=== PATIENT | male | born 1980 | race Caucasian/White ===

== ENCOUNTER 2016-11-08 19:58 | Inpatient (IN) | payer BC ==
[~2016-11-08] VITALS: Ht 190.5 cm; Wt 116.4 kg
[2016-11-08 20:06] VITALS: BP 180/135; PULSE 93; RESP 18; TEMP 98.2; O2SAT 97
[2016-11-08 20:30] VITALS: BP 163/86; PULSE 90; RESP 18; O2SAT 95
[2016-11-08] MEDS ORDERED: SODIUM CHLOR 0.9% 1000 ML INJ 1,000 ML IV SCH (20:31)
--- NOTE | 2016-11-08 20:45 | PD ---
HPI Chief Complaint: ENT Complaint Time Seen by Provider: 20:30 Travel History International Travel<30 days: No Contact w/Intl Traveler<30days: No Traveled to known affect area: No History of Present Illness HPI 36-year-old male with history of asthma brought in by his mother for evaluation of altered mental status. The patient lives in [place] and drove into town today. He was supposed to drive and yesterday, but states he wasn't feeling well. About a week ago Tuesday he went to an urgent care facility and was diagnosed with thrush for which she has been taking nystatin. The patient also reports taking a significant amount of Tylenol since then because he has been having head, mouth, and neck pain. Patient is also complaining of involuntary movements which have been going on for last several days. He denies alcohol abuse or illicit drug use. He is not sure if he has had fever. [facility] Social History Alcohol Use: Yes Tobacco Use: Yes Substance Use: Yes Allergies-Medications (Allergen,Severity, Reaction): Coded Allergies: No Known Allergies (Unverified , 11/08/16) Reported Meds & Prescriptions Reported Meds & Active Scripts Active Reported Tylenol (Acetaminophen) 325 Mg Tab 650 Mg PO Q6H PRN Paxil (Paroxetine HCl) Unknown Strength Tab Unknown Dose PO DAILY Review of Systems Except as stated in HPI: all other systems reviewed are Neg Physical Exam Narrative GENERAL: Well-developed, well-nourished, flailing arms and legs in bed, keeps eyes closed, follows commands. SKIN: Focused skin assessment warm/dry. No petechiae. HEAD: Atraumatic. Normocephalic. EYES: Pupils equal, round, 3 mm, reactive to light. No scleral icterus. No injection or drainage. ENT: No nasal bleeding or discharge. Mucous membranes pink and moist. White patches on tongue and buccal mucosa which are unable to be removed. NECK: Trachea midline. No JVD. No nuchal rigidity. Cervical LAD. CARDIOVASCULAR: Regular rate and rhythm. RESPIRATORY: No accessory muscle use. Clear to auscultation. Breath sounds equal bilaterally. GASTROINTESTINAL: Abdomen soft, non-tender, nondistended. MUSCULOSKELETAL: No obvious deformities. No clubbing. No cyanosis. No edema. NEUROLOGICAL: Awake and alert. Keeps eyes closed. Appears restless. Moves all extremities with continuous movements. No focal deficits. No obvious cranial nerve deficits. Motor grossly within normal limits. Normal speech. PSYCHIATRIC: Appropriate mood and affect; insight and judgment normal. Data Data Last Documented VS Vital Signs Date Time Temp Pulse Resp B/P Pulse Ox O2 Delivery O2 Flow Rate FiO2 11/08/16 22:50 92 18 171/82 Room Air 11/08/16 20:30 95 11/08/16 20:06 98.2 Orders Electrocardiogram (11/08/16 20:31) Ammonia (11/08/16 20:31) Complete Blood Count With Diff (11/08/16 20:31) Comprehensive Metabolic Panel (11/08/16 20:31) Creatine Kinase (Cpk) (11/08/16 20:31) Prothrombin Time / Inr (Pt) (11/08/16 20:31) Act Partial Throm Time (Ptt) (11/08/16 20:31) Thyroid Stimulating Hormone (11/08/16 20:31) Urinalysis - C+S If Indicated (11/08/16 20:31) Blood Glucose (11/08/16 20:31) Ecg Monitoring (11/08/16 20:31) Iv Access Insert/Monitor (11/08/16 20:31) Oximetry (11/08/16 20:31) Sodium Chloride 0.9% Flush (Ns Flush) (11/08/16 20:45) Sodium Chlor 0.9% 1000 Ml Inj (Ns 1000 M (11/08/16 20:31) Drug Screen, Random Urine (11/08/16 20:31) Alcohol (Ethanol) (11/08/16 20:31) Tylenol (Acetaminophen) (11/08/16 20:37) Ct Brain W/O Iv Contrast(Rout) (11/08/16 ) Ct Facial Bones W Iv Contrast (11/08/16 ) Ct Soft Tiss Neck W Iv Cont (11/08/16 ) Lorazepam Inj (Ativan Inj) (11/08/16 21:00) CKMB (11/08/16 20:40) CKMB% (11/08/16 20:40) Cath For Specimen (11/08/16 22:05) Lorazepam Inj (Ativan Inj) (11/08/16 22:15) Lorazepam Inj (Ativan Inj) (11/08/16 22:45) Admit Order (Ed Use Only) (11/08/16 23:14) Labs Laboratory Tests Test 11/08/16 11/08/16 11/08/16 20:40 21:00 21:45 White Blood Count 11.5 TH/MM3 Red Blood Count 4.59 MIL/MM3 Hemoglobin 14.5 GM/DL Hematocrit 42.2 % Mean Corpuscular Volume 91.8 FL Mean Corpuscular Hemoglobin 31.6 PG Mean Corpuscular Hemoglobin 34.4 % Concent Red Cell Distribution Width 13.5 % Platelet Count 229 TH/MM3 Mean Platelet Volume 8.2 FL Neutrophils (%) (Auto) 64.3 % Lymphocytes (%) (Auto) 24.1 % Monocytes (%) (Auto) 5.3 % Eosinophils (%) (Auto) 5.5 % Basophils (%) (Auto) 0.8 % Neutrophils # (Auto) 7.4 TH/MM3 Lymphocytes # (Auto) 2.8 TH/MM3 Monocytes # (Auto) 0.6 TH/MM3 Eosinophils # (Auto) 0.6 TH/MM3 Basophils # (Auto) 0.1 TH/MM3 CBC Comment DIFF FINAL Differential Comment Prothrombin Time 10.8 SEC Prothromb Time International 1.0 RATIO Ratio Activated Partial 28.2 SEC Thromboplast Time Sodium Level 140 MEQ/L Potassium Level 3.8 MEQ/L Chloride Level 104 MEQ/L Carbon Dioxide Level 28.6 MEQ/L Anion Gap 7 MEQ/L Blood Urea Nitrogen 11 MG/DL Creatinine 0.78 MG/DL Estimat Glomerular Filtration 111 ML/MIN Rate Random Glucose 115 MG/DL Calcium Level 9.0 MG/DL Total Bilirubin 2.3 MG/DL Aspartate Amino Transf 42 U/L (AST/SGOT) Alanine Aminotransferase 49 U/L (ALT/SGPT) Alkaline Phosphatase 96 U/L Total Creatine Kinase 400 U/L Creatine Kinase MB 0.7 NG/ML Creatine Kinase MB % 0.2 % Total Protein 7.7 GM/DL Albumin 4.5 GM/DL Thyroid Stimulating Hormone 1.930 uIU/ML 3rd Gen Ethyl Alcohol Level LESS THAN 3 MG/DL Ammonia 45 MCMOL/L Acetaminophen Level LESS THAN 2.0 MCG/ML Urine Color YELLOW Urine Turbidity CLEAR Urine pH 6.0 Urine Specific [place] 1.018 Urine Protein NEG mg/dL Urine Glucose (UA) NEG mg/dL Urine Ketones NEG mg/dL Urine Occult Blood NEG Urine Nitrite NEG Urine Bilirubin NEG Urine Leukocyte Esterase NEG Urine WBC 0-2 /hpf Urine Squamous Epithelial 0-5 /hpf Cells Urine Mucus OCC /lpf Microscopic Urinalysis Comment CULT NOT INDICATED Urine Opiates Screen NEG Urine Barbiturates Screen NEG Urine Amphetamines Screen POS Urine Benzodiazepines Screen NEG Urine Cocaine Screen POS Urine Cannabinoids Screen NEG MDM Medical Decision Making Medical Screen Exam Complete: Yes Emergency Medical Condition: Yes Differential Diagnosis Intracranial abnormality, metabolic abnormality, Tylenol overdose likely chronic , drug intoxication, alcohol intoxication, withdrawals, HIV, TTP, meningitis, encephalitis, serotonin syndrome Narrative Course Vital signs reviewed. CBC is unremarkable. CMP is remarkable for TB bili 2.3, otherwise unremarkable. Total CK is 400. Ammonia level is 45. TSH is 1.93. Tylenol level is negative. Alcohol level is negative. Urine drug screen is positive for amphetamines and cocaine. Patient admits to snorting both of these drugs about a week ago, but denies any more recent use. UA is unremarkable. Patient was given several doses of Ativan, however is still flowing around stretcher. He was taken for CT head, however CT shows significant motion artifact and cannot rule out dural hemorrhage. I looked at the images myself, and if there is a right-sided subdural it is very small and there is no midline shift. The patient and the patient's family were made aware of all findings. He will be admitted to the ICU for further judgment and evaluation of altered mental status, polysubstance abuse, and likely repeat CT head once the patient is more calm. Case discussed with cable engineer outside plant Dr. Solis who will admit the patient to his service. 11:23 PM after the patient was admitted he became very agitated and is walking around the room very clumsily. He is a significant danger to himself. His parents are requesting that he be restrained. Patient was both physically and chemically restrained for his own safety. 12:08 AM: Case again discussed with cable engineer outside plant Dr. Solis. Instead of admitting to the ICU here, the patient will be transferred to the main ICU. Critical Care Narrative Aggregate critical care time was 35 minutes. Time to perform other separately billable procedures was not included in the critical care time. My time did not include minutes spent treating any other patients simultaneously or on activities that did not directly contribute to the patient's treatment. The services I provided to this patient were to treat and/or prevent clinically significant deterioration that could result in: , permanent disability, worsening clinical condition. I provided critical care services requiring my management, as noted below: Chart data review, documentation time, medication orders and management, vital sign assessments/reviewing monitor data, ordering and reviewing lab tests, ordering and interpreting/reviewing x-rays and diagnostic studies, care of the patient and discussion of the patient with the admitting physicians. Diagnosis Primary Impression: Altered mental status Qualified Code: R41.0 - Disorientation Additional Impression: Polysubstance abuse Admitting Information Admitting Physician Requests: Admit Kamlesh Moore MD November 08, 2016 20:45
[2016-11-08] MEDS: SODIUM CHLORIDE 0.9% FLUSH 10 ML FLUSH IVF PRN (20:46)
[2016-11-08] MEDS ORDERED: LORazepam 2 MG/ML VIAL IV PUSH ONE ×3 (21:00→22:45)
[2016-11-08 21:12] LABS: CHLORIDE 104 MEQ/L (98-107); POTASSIUM 3.8 MEQ/L (3.5-5.1); SODIUM (NA) 140 MEQ/L (136-145)
[2016-11-08 21:15] VITALS: BP 178/74; PULSE 92; RESP 18
[2016-11-08 21:17] LABS: ANION GAP 7 MEQ/L (5-15); BICARBONATE 28.6 MEQ/L (21.0-32.0); BLOOD UREA NITROGEN 11 MG/DL (7-18)
[2016-11-08 21:20] LABS: ALT (GPT) 49 U/L (12-78); AST (GOT) 42 U/L (15-37); GLOMERULAR FILTRATION RATE 111 ML/MIN (>89)
[2016-11-08 21:21] LABS: TOTAL BILIRUBIN ADULT 2.3 MG/DL (0.2-1.0)
[2016-11-08 21:22] LABS: ALKALINE PHOSPHATASE 96 U/L (45-117); CREATINE KINASE 400 U/L (39-308)
[2016-11-08 21:24] LABS: APTT (PATIENT) 28.2 SEC (24.3-30.1); PROTHROMBIN TIME - PATIENT 10.8 SEC (9.8-11.6)
[2016-11-08 21:36] LABS: AUTOMATED NEUTROPHIL # 7.4 TH/MM3 (1.8-7.7); BASOPHIL # 0.1 TH/MM3 (0-0.2); BASOPHIL % 0.8 % (0.0-2.0); EOSINOPHIL # 0.6 TH/MM3 (0-0.4); EOSINOPHIL % 5.5 % (0.0-4.0); HEMATOCRIT 42.2 % (39.0-51.0); HEMO FLAGS DIFF FINAL; LYMPH % 24.1 % (9.0-44.0); LYMPHOCYTE # 2.8 TH/MM3 (1.0-4.8); MEAN CELL VOLUME 91.8 FL (80.0-100.0); MEAN CORPUSCULAR HEMOGLOBIN 31.6 PG (27.0-34.0); MEAN CORPUSCULAR HGB CONC 34.4 % (32.0-36.0); MONO % 5.3 % (0.0-8.0); NEUT % 64.3 % (16.0-70.0); PLATELET COUNT 229 TH/MM3 (150-450); RED BLOOD COUNT 4.59 MIL/MM3 (4.50-5.90); RED CELL DISTRIBUTION WIDTH 13.5 % (11.6-17.2); WHITE BLOOD COUNT 11.5 TH/MM3 (4.0-11.0)
[2016-11-08 21:48] LABS: CKMB 0.7 NG/ML (0.5-3.6)
[2016-11-08] MEDS ORDERED: PAXI10TA2 PO (21:51)
[2016-11-08] MEDS ORDERED: TYLE325T PO (21:52)
[2016-11-08 21:54] LABS: BLOOD, URINE NEG (NEG); GLUCOSE,URINE NEG (NEG); KETONE, URINE NEG (NEG); NITRITE,URINE NEG (NEG)
[2016-11-08 22:04] LABS: AMPHETAMINE, URINE POS (NEG); BARBITURATES, URINE NEG (NEG)
[2016-11-08 22:05] LABS: URINE COLOR YELLOW (YELLW/STRAW)
[2016-11-08 22:07] LABS: MUCUS URINE OCC /lpf (OCC); SQUAMOUS EPITHELIAL CELL URINE 0-5 /hpf (0-5)
[2016-11-08 22:08] LABS: COMMENT (UR) CULT NOT INDICATED; CULTURE IF INDICATED CULT NOT INDICATED; WBC, URINE 0-2 /hpf (0-5)
[2016-11-08 22:12] LABS: COCAINE, URINE POS (NEG)
[2016-11-08 22:50] VITALS: BP 171/82; PULSE 92; RESP 18
--- NOTE | 2016-11-08 23:00 | RADHPO ---
EXAM DATE/TIME: 11/08/2016 22:36 [facility] COMPARISON: No previous studies available for comparison. INDICATIONS : Altered mental status. RADIATION DOSE: 39.92 CTDIvol (mGy) MEDICAL HISTORY : None SURGICAL HISTORY : None. ENCOUNTER: Initial ACUITY: 1 day PAIN SCALE: 10/10 LOCATION: Bilateral cranial TECHNIQUE: Multiple contiguous axial images were obtained of the head. Using automated exposure control and adj ustment of the mA and/or kV according to patient size, radiation dose was kept as low as reasonably a chievable to obtain optimal diagnostic quality images. FINDINGS: Extensive motion artifact. CEREBRUM: The ventricles are normal for age. No evidence of midline shift, mass lesion, hemorrhage or acute in farction. Right-sided subdural hemorrhage cannot be excluded. POSTERIOR FOSSA: The cerebellum and brainstem are intact. The 4th ventricle is midline. The cerebellopontine angle i s unremarkable. EXTRACRANIAL: The visualized portion of the orbits is intact. SKULL: The calvaria is intact. No evidence of skull fracture. CONCLUSION: Extensive motion artifact. Right-sided subdural hemorrhage cannot be excluded. Otherwise unremarkable CT brain. Dandre Ledesma MD on November 08, 2016 at 22:56 Board Certified Radiologist. This report was verified electronically.
[2016-11-08] MEDS ORDERED: OLANZapine IM 10 MG VIAL IM ONE (23:30)
[2016-11-09] VITALS (18 sets, daily range): BP systolic 119–174; BP diastolic 63–90; PULSE 68–92; RESP 14–20; TEMP 98.3–99; O2SAT 92–98
[2016-11-09] MEDS ORDERED: diphenhydrAMINE HCL 50 MG/ML VIAL IV PUSH ONE
[2016-11-09] MEDS ORDERED: LORA-392 PO (00:28)
--- NOTE | 2016-11-09 05:45 | HHI.HP ---
HPI Service Critical Care Medicine Primary Care Physician Non-Staff Admission Diagnosis altered mental status, polysubstance abuse, possible ICH Diagnosis: Travel History International Travel<30 Days: No Contact w/Intl Traveler <30 Da: No Traveled to Known Affected Are: No History of Present Illness 36-year-old male with history of asthma brought in by his mother for evaluation of altered mental status. The patient lives in [place] and drove into town today. He wasn't feeling well yesterday. About a week ago Tuesday he went to an urgent care facility and was diagnosed with thrush for which she has been taking nystatin. The patient also reports taking a significant amount of Tylenol since then because he has been having head, mouth, and neck pain. Patient was also complaining of involuntary movements which have been going on for last several days. He denies alcohol abuse or illicit drug use. He is not sure if he has had fever. CT of the head that the [place] revealed questionable subdural hematoma. Patient became extremely agitated requiring restraints. For the patient's safety he was transferred to here for level of care and follow-up CT of the head. Review of Systems ROS Unable to obtain patient's to agitated Past Family Social History Allergies: Coded Allergies: No Known Allergies (Unverified , 11/08/16) Past Medical History Polysubstance abuse Past Surgical History None Reported Medications Reported Meds & Active Scripts Active Reported Ativan (Lorazepam) 0.5 Mg Tab Unknown Dose PO DAILY PRN Tylenol (Acetaminophen) 325 Mg Tab 650 Mg PO Q6H PRN Paxil (Paroxetine HCl) Unknown Strength Tab Unknown Dose PO DAILY Active Ordered Medications Current Medications Medications (Trade) Dose Ordered Sig/Ko Route PRN Reason Start Time Stop Time Status Last Admin Dose Admin Sodium Chloride (NS Flush) 2 ml UNSCH PRN IVF FLUSH AFTER USING IV ACCESS 11/08/16 20:45 11/08/16 20:46 Family History Noncontributory Social History Polysubstance abuse Alcohol abuse Tobacco use Physical Exam Vital Signs Vital Signs Date Time Temp Pulse Resp B/P Pulse Ox O2 Delivery O2 Flow Rate FiO2 11/09/16 05:04 84 18 169/90 98 Venturi Mask 6 50 11/09/16 03:40 82 18 140/88 96 Venturi Mask 6 50 11/09/16 02:40 80 18 129/65 95 Venturi Mask 6 50 11/09/16 02:40 82 11/09/16 01:55 84 20 139/68 96 Venturi Mask 6 50 11/09/16 01:15 84 20 126/68 96 Venturi Mask 6 50 11/09/16 00:45 98.3 80 18 127/64 94 Venturi Mask 6 50 11/09/16 00:10 18 95 Venturi Mask 6 50 11/09/16 00:00 92 18 174/87 92 Room Air 11/08/16 22:50 92 18 171/82 Room Air 11/08/16 21:15 92 18 178/74 Room Air 11/08/16 20:30 90 18 163/86 95 Room Air 11/08/16 20:06 98.2 93 18 180/135 97 Physical Exam GENERAL: Well-nourished, well-developed patient. Agitated In 4. restraints SKIN: Warm and dry. HEAD: Normocephalic. EYES: No scleral icterus. No injection or drainage. NECK: Supple, trachea midline. No JVD or lymphadenopathy. CARDIOVASCULAR: Regular rate and rhythm without murmurs, gallops, or rubs. RESPIRATORY: Breath sounds equal bilaterally. No accessory muscle use. GASTROINTESTINAL: Abdomen soft, non-tender, nondistended. MUSCULOSKELETAL: No cyanosis, or edema. BACK: Nontender without obvious deformity. No CVA tenderness. EXTREMITIES: No clubbing cyanosis or edema Laboratory Laboratory Tests Test 11/08/16 11/08/16 11/08/16 20:40 21:00 21:45 White Blood Count 11.5 Red Blood Count 4.59 Hemoglobin 14.5 Hematocrit 42.2 Mean Corpuscular Volume 91.8 Mean Corpuscular Hemoglobin 31.6 Mean Corpuscular Hemoglobin 34.4 Concent Red Cell Distribution Width 13.5 Platelet Count 229 Mean Platelet Volume 8.2 Neutrophils (%) (Auto) 64.3 Lymphocytes (%) (Auto) 24.1 Monocytes (%) (Auto) 5.3 Eosinophils (%) (Auto) 5.5 Basophils (%) (Auto) 0.8 Neutrophils # (Auto) 7.4 Lymphocytes # (Auto) 2.8 Monocytes # (Auto) 0.6 Eosinophils # (Auto) 0.6 Basophils # (Auto) 0.1 CBC Comment DIFF FINAL Differential Comment Prothrombin Time 10.8 Prothromb Time International 1.0 Ratio Activated Partial 28.2 Thromboplast Time Sodium Level 140 Potassium Level 3.8 Chloride Level 104 Carbon Dioxide Level 28.6 Anion Gap 7 Blood Urea Nitrogen 11 Creatinine 0.78 Estimat Glomerular Filtration 111 Rate Random Glucose 115 Calcium Level 9.0 Total Bilirubin 2.3 Aspartate Amino Transf 42 (AST/SGOT) Alanine Aminotransferase 49 (ALT/SGPT) Alkaline Phosphatase 96 Total Creatine Kinase 400 Creatine Kinase MB 0.7 Creatine Kinase MB % 0.2 Total Protein 7.7 Albumin 4.5 Thyroid Stimulating Hormone 1.930 3rd Gen Ethyl Alcohol Level LESS THAN 3 Ammonia 45 Acetaminophen Level LESS THAN 2.0 Urine Color YELLOW Urine Turbidity CLEAR Urine pH 6.0 Urine Specific [place] 1.018 Urine Protein NEG Urine Glucose (UA) NEG Urine Ketones NEG Urine Occult Blood NEG Urine Nitrite NEG Urine Bilirubin NEG Urine Leukocyte Esterase NEG Urine WBC 0-2 Urine Squamous Epithelial 0-5 Cells Urine Mucus OCC Microscopic Urinalysis Comment CULT NOT INDICATED Urine Opiates Screen NEG Urine Barbiturates Screen NEG Urine Amphetamines Screen POS Urine Benzodiazepines Screen NEG Urine Cocaine Screen POS Urine Cannabinoids Screen NEG Result Diagram: 11/08/16203911/08/[id number] Assessment and Plan Assessment and Plan Altered mental status - Cocaine and amphetamine toxicity - IV fluids - When necessary benzodiazepine - Neuro checks per unit routine - Monitor for withdrawal Subdural hematoma??? - Repeat CT had - If positive consult neurosurgery - No history of trauma - Coags within normal limits DVT GI prophylaxis - Teds SCDs - Early aggressive mobilization - No pharmacological DVT prophylaxis due to questionable subdural hematoma - Pepcid Critical Care: The total critical care time was 35 minutes. Time to perform other separately billable procedures was not included in the critical care time. Antonio Solis MD November 09, 2016 05:45
[2016-11-09] MEDS: SODIUM CHLORIDE 0.9% FLUSH 10 ML FLUSH IVF PRN (05:58)
[2016-11-09] MEDS ORDERED: CHLORHEXIDINE GLUCONATE 2 % 1 PACK (2 CLOTHS) TOP PRN (06:00)
[2016-11-09] MEDS ORDERED: MISCELLANEOUS NURSING INFORMATION XX SCH (06:00)
[2016-11-09] MEDS ORDERED: ONDANSETRON HCL 4 MG/2 ML VIAL IV PRN (06:00)
[2016-11-09] MEDS ORDERED: HEPARIN SODIUM - SQ 10,000 UNITS/ML VIAL SQ SCH (06:00)
[2016-11-09] MEDS ORDERED: MIDAZOLAM HCL 2 MG/2 ML VIAL IV PRN (06:00)
[2016-11-09] MEDS ORDERED: DEXMEDETOMIDINE INJ 200 MCG in SODIUM CHLORIDE 0.9% INJ 50 ML IV SCH (06:00)
[2016-11-09] MEDS ORDERED: SODIUM CHLORIDE 0.9% FLUSH 10 ML FLUSH PRN (06:00)
[2016-11-09] MEDS: SODIUM CHLOR 0.9% 1000 ML INJ 1,000 ML IV SCH ×3 (06:00→21:18)
[2016-11-09] MEDS ORDERED: RESP: ALBUTEROL 2.5 MG/IPRATROPIUM 0.5 MG NEB (PRN) INH (06:00)
[2016-11-09] MEDS ORDERED: MORPHINE SULFATE 4 MG/ML INJ IV PRN (06:00)
[2016-11-09] MEDS ORDERED: METOCLOPRAMIDE HCL 10 MG/2 ML VIAL IV PRN (06:00)
[2016-11-09] MEDS ORDERED: LORazepam 2 MG/ML VIAL IV PUSH PRN ×4 (06:15)
[2016-11-09] MEDS ORDERED: FLUMAZENIL 0.5 MG/5 ML VIAL IV PUSH PRN (06:15)
[2016-11-09] MEDS ORDERED: LORazepam 1 MG TAB PO PRN (06:15)
[2016-11-09] MEDS ORDERED: LORazepam 2 MG TAB PO PRN (06:15)
[2016-11-09] MEDS: DOCUSATE SODIUM 100 MG CAP PO SCH ×2 (08:29→21:16)
[2016-11-09] MEDS: SODIUM CHLORIDE 0.9% FLUSH 10 ML FLUSH SCH ×2 (08:29→21:17)
[2016-11-09] MEDS: FAMOTIDINE 20 MG/2 ML VIAL IV PUSH SCH ×2 (08:39→21:16)
--- NOTE | 2016-11-09 09:47 | PD.CONS ---
(Wayne Abreu) [facility] Service Neurosurgery Consult Requested By Dr Cotton Reason for Consult [facility] Primary Care Physician Non-Staff History of Present Illness This is a 36-year-old male who states that he is uncertain why he is in the hospital. When seen he was extremely drowsy and kept drifting back off to sleep. He did state that he had not been feeling well the past couple weeks. A review of the Hospitalist H&P indicates the patient was brought to the hospital for evaluation of altered mental status. He apparently lives in [place] and drove to [facility] yesterday and was not feeling well. It is noted that around the patient presented to an urgent care facility and was diagnosed with thrush and was being treated with nystatin. He did report taking a significant amount of acetaminophen due the head, mouth and neck pain. The patient also reported involuntary movements which were not further described that had been ongoing for several days prior. He was uncertain if he had any fever and he denied any alcohol or illicit drug use. He had a CT brain done at [place] which demonstrated a questionable subdural haematoma. The patient subsequently became extremely agitated and required restraints. Therefore he was transferred to [facility] for further evaluation and care. (Wayne Abreu) Review of Systems Constitutional: Patient states that he hasn't felt well the past couple weeks. HEENT: Patient denies any double vision, blurry vision, nasal drainage, or other ENT problems. Respiratory: Patient states that he has been short of breath. Cardiovascular: Patient denies any chest pain, palpitations or irregular heart beat. Gastrointestinal: Patient denies any abdominal pain, nausea, vomiting or bowel incontinence. Genitourinary: Patient denies any bladder incontinence. Musculoskeletal: Patient denies any arm or leg pain or weakness. Integumentary: Patient denies any itching, rashes, ulcerations or other skin lesions. Haematologic/Lymphatic: Patient denies bruising easily or bleeding tendencies. Neurologic: Patient denies any headache, dizziness, numbness or tingling. Psychiatric: Patient denies any depression or anxiety. (Wayne Abreu) Past Family Social History Allergies: Coded Allergies: Egg White (Verified Allergy, Severe, Anaphylaxis, 11/09/16) Nut Tree (Verified Allergy, Severe, Anaphylaxis, 11/09/16) Past Medical History Asthma Polysubstance abuse Past Surgical History None Reported Medications Nystatin Acetaminophen Active Ordered Medications Current Medications Medications (Trade) Dose Ordered Sig/Ko Route Start Time Stop Time Status Last Admin Sodium Chloride 2 ml 2 ml UNSCH PRN IVF 11/08/16 20:45 11/09/16 05:58 (NS 1000 ml Inj) 1,000 ml @ 124 mls/hr Q8H4M IV 11/09/16 05:50 11/09/16 06:00 (NS Flush) 2 ml UNSCH PRN .XX 11/09/16 06:00 (NS Flush) 2 ml BID .XX 11/09/16 09:00 11/09/16 08:29 (Tylenol) 650 mg Q6H PRN PO 11/09/16 06:00 (Morphine Inj) 2 mg Q2H PRN IV 11/09/16 06:00 (Pepcid Inj) 20 mg Q12HR IV PUSH 11/09/16 09:00 11/09/16 08:39 (Versed Inj) 2 mg Q1H PRN IV 11/09/16 06:00 (Zofran Inj) 4 mg Q6H PRN IV 11/09/16 06:00 (Reglan Inj) 10 mg Q6H PRN IV 11/09/16 06:00 (Colace) 100 mg BID PO 11/09/16 09:00 Miscellaneous Information 1 Q361D XX 11/09/16 06:00 11/09/16 06:00 (Chlorhexidine 2% Cloth) 3 pack Taper DAILY@04 TOP 11/10/16 04:00 11/06/17 03:59 Chlorhexidine Gluconate 3 pack 3 pack UNSCH PRN TOP 11/09/16 06:00 (Precedex Inj/NS Inj) 52 ml @ 0 mls/hr TITRATE IV 11/09/16 06:00 (Romazicon Inj) 0.2 mg Q1M PRN IV PUSH 11/09/16 06:15 (Ativan) 1 mg Q4H PRN PO 11/09/16 06:15 (Ativan Inj) 1 mg Q4H PRN IV PUSH 11/09/16 06:15 (Ativan) 2 mg Q2H PRN PO 11/09/16 06:15 (Ativan Inj) 2 mg Q2H PRN IV PUSH 11/09/16 06:15 (Ativan Inj) 2 mg Q1H PRN IV PUSH 11/09/16 06:15 (Ativan Inj) 2 mg Q15M PRN IV PUSH 11/09/16 06:15 Family History Noncontributory Social History Single 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 Denies any tobacco use Drinks less than 2 drinks alcohol per day Smokes marijuana but denies any other illicit drug use (Wayne Abreu) Physical Exam Vital Signs Vital Signs Date Time Temp Pulse Resp B/P Pulse Ox O2 Delivery O2 Flow Rate FiO2 11/09/16 09:15 96 Venturi Mask 31 11/09/16 08:00 99.0 76 19 119/63 97 11/09/16 08:00 83 11/09/16 07:15 83 11/09/16 07:00 96 Venturi Mask 5.00 50 11/09/16 05:42 Venturi Mask 6.00 50 11/09/16 05:30 98.9 81 14 140/70 96 11/09/16 05:04 84 18 169/90 98 Venturi Mask 6 50 11/09/16 03:40 82 18 140/88 96 Venturi Mask 6 50 11/09/16 02:40 80 18 129/65 95 Venturi Mask 6 50 11/09/16 02:40 82 11/09/16 01:55 84 20 139/68 96 Venturi Mask 6 50 11/09/16 01:15 84 20 126/68 96 Venturi Mask 6 50 11/09/16 00:45 98.3 80 18 127/64 94 Venturi Mask 6 50 11/09/16 00:10 18 95 Venturi Mask 6 50 11/09/16 00:00 92 18 174/87 92 Room Air 11/08/16 22:50 92 18 171/82 Room Air 11/08/16 21:15 92 18 178/74 Room Air 11/08/16 20:30 90 18 163/86 95 Room Air 11/08/16 20:06 98.2 93 18 180/135 97 Physical Exam General: Patient drowsy, NAD. HEENT: Normocephalic, atraumatic. PERRLA, EOM intact. MMM & pink. Nasal trumpet to right naris. Respiratory: CTAB w/o W/R/R, equal excursion, non-laboured, on venti mask then transitioned to nasal cannula. Cardiovascular: S1S2 w/RRR w/o M/G/R, radial & pedal pulses 2+ bilaterally, cap refill < 2 sec, no pedal edema. Monitor is sinus rhythm w/o any ectopy noted. Gastrointestinal: Abdomen soft, nontender, no palpable masses or organomegaly, positive bowel sounds. Genitourinary: Normal male genitalia. Musculoskeletal: DA SILVA w/o difficulty, no TTP, no deformity, discolouration or clubbing noted. Integumentary: No evident rashes, lesions or ulcerations. Neurologic: Drowsy, awakens to verbal stimuli, keeps drifting off to sleep as examined Oriented to person, place and time Follows simple commands Sensations grossly intact to light touch to all extremities Motor strength 5/5 to all major flexion & extension muscle groups Unable to test for Forman's or ankle clonus due to patient staying tense Psychiatric: Affect slightly flat, drowsy. Laboratory Laboratory Tests Test 11/08/16 11/08/16 11/08/16 11/09/16 20:40 21:00 21:45 05:34 White Blood Count 11.5 Red Blood Count 4.59 Hemoglobin 14.5 Hematocrit 42.2 Mean Corpuscular Volume 91.8 Mean Corpuscular Hemoglobin 31.6 Mean Corpuscular Hemoglobin 34.4 Concent Red Cell Distribution Width 13.5 Platelet Count 229 Mean Platelet Volume 8.2 Neutrophils (%) (Auto) 64.3 Lymphocytes (%) (Auto) 24.1 Monocytes (%) (Auto) 5.3 Eosinophils (%) (Auto) 5.5 Basophils (%) (Auto) 0.8 Neutrophils # (Auto) 7.4 Lymphocytes # (Auto) 2.8 Monocytes # (Auto) 0.6 Eosinophils # (Auto) 0.6 Basophils # (Auto) 0.1 CBC Comment DIFF FINAL Differential Comment Prothrombin Time 10.8 Prothromb Time International 1.0 Ratio Activated Partial 28.2 Thromboplast Time Sodium Level 140 Potassium Level 3.8 Chloride Level 104 Carbon Dioxide Level 28.6 Anion Gap 7 Blood Urea Nitrogen 11 Creatinine 0.78 Estimat Glomerular Filtration 111 Rate Random Glucose 115 Calcium Level 9.0 Total Bilirubin 2.3 Aspartate Amino Transf 42 (AST/SGOT) Alanine Aminotransferase 49 (ALT/SGPT) Alkaline Phosphatase 96 Total Creatine Kinase 400 Creatine Kinase MB 0.7 Creatine Kinase MB % 0.2 Total Protein 7.7 Albumin 4.5 Thyroid Stimulating Hormone 1.930 3rd Gen Ethyl Alcohol Level LESS THAN 3 Ammonia 45 Acetaminophen Level LESS THAN 2.0 Urine Color YELLOW Urine Turbidity CLEAR Urine pH 6.0 Urine Specific Comfort 1.018 Urine Protein NEG Urine Glucose (UA) NEG Urine Ketones NEG Urine Occult Blood NEG Urine Nitrite NEG Urine Bilirubin NEG Urine Leukocyte Esterase NEG Urine WBC 0-2 Urine Squamous Epithelial 0-5 Cells Urine Mucus OCC Microscopic Urinalysis Comment CULT NOT INDICATED Urine Opiates Screen NEG Urine Barbiturates Screen NEG Urine Amphetamines Screen POS Urine Benzodiazepines Screen NEG Urine Cocaine Screen POS Urine Cannabinoids Screen NEG Nasal Screen MRSA (PCR) MRSA NOT DETECTED (Wayne Abreu) Result Diagram: 11/08/16203911/08/162039 Imaging This practitioner reviewed all imaging studies personally. The CT from yesterday was of limited value due to the motion artifact. The CT this morning was unremarkable for any acute findings. Neck CT 11/09/16 0723 Signed Impressions: Service Date/Time: Wednesday, November 09, 2016 10:02 - CONCLUSION: 1. Unremarkable CT scan of the neck. No masses are identified. Amado Dubois MD Head CT 11/09/16 0000 Signed Impressions: Service Date/Time: Wednesday, November 09, 2016 10:02 - CONCLUSION: Normal examination. No subdural hematoma observed. Ha Pereira Jr., MD Head CT 11/08/16 0000 Signed Impressions: Service Date/Time: Tuesday, November 08, 2016 22:36 - CONCLUSION: Extensive motion artifact. Right-sided subdural hemorrhage cannot be excluded. Otherwise unremarkable CT brain. Dandre Ledesma MD (Wayne Abreu) Assessment and Plan Assessment and Plan Impression: Altered mental status, improving, etiology unknown Plan: No indication for NSGY Recommend Neurology consult (Wayne Abreu) Attending Statement I have personally seen and examined the patient on the date of this note. Pertinent documentation and study results have been reviewed by the undersigned. I have personally developed the treatment plan and performed medical decision making. Agree with findings, exam, and treatment plan as noted above. Discussion with the patient and his family indicate that he has been using cocaine nasal inhalation. Complaints of significant swelling in soreness in his mouth. Recent transient agitation which the family states it is much better today. Patient examined and findings discussed with the patient and family on 11/09/16 in the patient's room. CT scan head initial and follow-up images reviewed. No definite subdural abscess. Presently no neurosurgical issues. We will follow-up exam on 11/10/16 and assess for continued improvement in mental status. (Taj Bernardo MD) Wayne Abreu November 09, 2016 09:47 Taj Bernardo MD November 10, 2016 20:27
[2016-11-09] MEDS ORDERED: IOHEXOL 350 MG/ML 10 ML VIAL (for RAD DIAG) IV ONE (10:22)
[2016-11-09 10:36] LABS: CKMB 0.5 NG/ML (0.5-3.6)
--- NOTE | 2016-11-09 10:43 | RADRPT ---
EXAM DATE/TIME: 11/09/2016 10:02 [facility] COMPARISON: CT BRAIN W/O CONTRAST, November 08, 2016, 22:36. INDICATIONS : Questionable subdural hematoma. RADIATION DOSE: 46.69 CTDIvol (mGy) MEDICAL HISTORY : None SURGICAL HISTORY : None. ENCOUNTER: Initial ACUITY: 2 days PAIN SCALE: Non-responsive LOCATION: cranial TECHNIQUE: Multiple contiguous axial images were obtained of the head. Using automated exposure control and adj ustment of the mA and/or kV according to patient size, radiation dose was kept as low as reasonably a chievable to obtain optimal diagnostic quality images. FINDINGS: CEREBRUM: The ventricles are normal for age. No evidence of midline shift, mass lesion, hemorrhage or acute in farction. No extra-axial fluid collections are seen. POSTERIOR FOSSA: The cerebellum and brainstem are intact. The 4th ventricle is midline. The cerebellopontine angle i s unremarkable. EXTRACRANIAL: The visualized portion of the orbits is intact. SKULL: The calvaria is intact. No evidence of skull fracture. CONCLUSION: Normal examination. No subdural hematoma observed. Ha Pereira Jr., MD on November 09, 2016 at 10:29 Board Certified Radiologist. This report was verified electronically.
--- NOTE | 2016-11-09 10:53 | RADRPT ---
EXAM DATE/TIME: 11/09/2016 10:02 [facility] COMPARISON: No previous studies available for comparison. INDICATIONS : Evaluate for abscess. IV CONTRAST: 55 cc Omnipaque 350 (iohexol) IV RADIATION DOSE: 16.34 CTDIvol (mGy) MEDICAL HISTORY : None SURGICAL HISTORY : None. ENCOUNTER: Initial ACUITY: 2 days PAIN SCALE: Non-responsive LOCATION: neck TECHNIQUE: Volumetric scanning of the neck was performed. Using automated exposure control and adjustment of th e mA and/or kV according to patient size, radiation dose was kept as low as reasonably achievable to obtain optimal diagnostic quality images. FINDINGS: Examination of the skull base demonstrates no evidence of deep infiltrating mucosal lesion. The oroph arynx, hypopharynx, glottic and subglottic airway demonstrate no abnormality. No abscess is identifie d. Examination of the neck for adenopathy demonstrates no abnormally large lymph nodes by CT criteria. T he thyroid gland demonstrates no abnormality. Lung apices demonstrate no evidence of pulmonary nodule. Bone windows are unremarkable. CONCLUSION: 1. Unremarkable CT scan of the neck. No masses are identified. Amado Dubois MD on November 09, 2016 at 10:48 Board Certified Radiologist. This report was verified electronically.
[2016-11-09] MEDS: ACETAMINOPHEN 325 MG TAB PO PRN (13:09)
--- NOTE | 2016-11-09 14:01 | EKG ---
Date Performed: 11/09/2016 Time Performed: 00:44:24 PTAGE: 36 years EKG: Sinus rhythm Normal ECG NO PREVIOUS TRACING DOCTOR: Demetris Lees Interpretating Date/Time 11/09/2016 13:59:39
[2016-11-10] VITALS (13 sets, daily range): BP systolic 129–151; BP diastolic 58–71; PULSE 60–72; RESP 14–19; TEMP 97.5–98.9; O2SAT 92–96
[2016-11-10] MEDS: CHLORHEXIDINE GLUCONATE 2 % 1 PACK (2 CLOTHS) TOP SCH (04:00)
[2016-11-10 04:19] LABS: AUTOMATED NEUTROPHIL # 5.5 TH/MM3 (1.8-7.7); BASOPHIL # 0.1 TH/MM3 (0-0.2); BASOPHIL % 0.9 % (0.0-2.0); EOSINOPHIL # 0.5 TH/MM3 (0-0.4); EOSINOPHIL % 5.1 % (0.0-4.0); HEMATOCRIT 35.6 % (39.0-51.0); HEMO FLAGS DIFF FINAL; LYMPH % 27.8 % (9.0-44.0); LYMPHOCYTE # 2.5 TH/MM3 (1.0-4.8); MEAN CELL VOLUME 91.5 FL (80.0-100.0); MEAN CORPUSCULAR HEMOGLOBIN 32.5 PG (27.0-34.0); MEAN CORPUSCULAR HGB CONC 35.5 % (32.0-36.0); MONO % 5.5 % (0.0-8.0); NEUT % 60.7 % (16.0-70.0); PLATELET COUNT 199 TH/MM3 (150-450); RED BLOOD COUNT 3.89 MIL/MM3 (4.50-5.90)
[2016-11-10 04:48] LABS: ALT (GPT) 44 U/L (12-78); ANION GAP 8 MEQ/L (5-15); AST (GOT) 47 U/L (15-37); BICARBONATE 28.6 MEQ/L (21.0-32.0); BLOOD UREA NITROGEN 12 MG/DL (7-18); CHLORIDE 104 MEQ/L (98-107); GLOMERULAR FILTRATION RATE 174 ML/MIN (>89); MAGNESIUM 2.3 MG/DL (1.5-2.5); POTASSIUM 3.4 MEQ/L (3.5-5.1); SODIUM (NA) 141 MEQ/L (136-145)
[2016-11-10 04:49] LABS: ALKALINE PHOSPHATASE 87 U/L (45-117); TOTAL BILIRUBIN ADULT 2.9 MG/DL (0.2-1.0)
[2016-11-10] MEDS ORDERED: NALOXONE HCL 0.4 MG/ML AMP IV PUSH PRN (08:00)
[2016-11-10] MEDS ORDERED: POTASSIUM CHLORIDE 10 MEQ CONTROLLED RELEASE TAB PO ONE (08:00)
[2016-11-10] MEDS: DOCUSATE SODIUM 100 MG CAP PO SCH ×2 (09:04→21:45)
[2016-11-10] MEDS: FAMOTIDINE 20 MG/2 ML VIAL IV PUSH SCH (09:04)
[2016-11-10] MEDS: SODIUM CHLORIDE 0.9% FLUSH 10 ML FLUSH SCH ×2 (09:05→21:45)
--- NOTE | 2016-11-10 10:28 | HHI.PR ---
Subjective Remarks Follow-up encephalopathy. Consulted the critical care medicine for transfer to medical management. Chart reviewed. Case discussed with RN. Patient without any complaints. Improving mouth pain. He is alert and oriented 4. Occasional alcohol use admits to cocaine and tobacco abuse. Objective Vitals Vital Signs Date Time Temp Pulse Resp B/P Pulse Ox O2 Delivery O2 Flow Rate FiO2 11/10/16 10:17 96 Nasal Cannula 2.00 11/10/16 08:00 60 11/10/16 07:00 96 Nasal Cannula 2.00 11/10/16 06:00 62 11/10/16 04:00 98.5 65 17 139/63 92 11/10/16 04:00 65 11/10/16 02:00 71 11/10/16 00:00 97.5 71 18 139/63 92 11/10/16 00:00 71 11/09/16 22:00 92 Room Air 11/09/16 22:00 73 11/09/16 20:00 77 11/09/16 20:00 98.8 74 19 139/72 95 11/09/16 19:00 96 Nasal Cannula 2.00 11/09/16 18:00 77 11/09/16 16:00 99.0 68 20 144/71 92 11/09/16 16:00 69 11/09/16 14:09 18 11/09/16 14:00 73 11/09/16 13:46 Room Air 11/09/16 13:25 98 Nasal Cannula 3.00 11/09/16 12:00 84 11/09/16 12:00 98.6 83 20 145/68 94 I/O 11/09/16 11/09/16 11/09/16 11/10/16 11/10/16 11/10/16 07:00 15:00 23:00 07:00 15:00 23:00 Intake Total 1159 ml 796 ml 586 ml Output Total 1000 ml 1000 ml 550 ml Balance 159 ml -204 ml 36 ml Intake Oral 250 ml IV Total 909 ml 796 ml 586 ml Output Urine Total 1000 ml 1000 ml 550 ml Stool Total 0 ml 0 ml Bladder Scan Volume Amount 857 ml 457 ml # Bowel Movements 0 Result Diagram: 11/10/1640311/10/16403 Imaging Last Impressions Neck CT 11/09/16722 Signed Impressions: Service Date/Time: Wednesday, November 09, 2016 10:02 - CONCLUSION: 1. Unremarkable CT scan of the neck. No masses are identified. Amado Dubois MD Head CT 11/09/16 0000 Signed Impressions: Service Date/Time: Wednesday, November 09, 2016 10:02 - CONCLUSION: Normal examination. No subdural hematoma observed. Ha Pereira Jr., MD Objective Remarks GENERAL: Obese well-developed in no distress SKIN: Warm and dry. HEAD: Atraumatic. Normocephalic. EYES: Pupils equal and round. No scleral icterus. No injection or drainage. ENT: No nasal bleeding or discharge. Tongue with a thick coating of grayish green material NECK: Trachea midline. No JVD. CARDIOVASCULAR: Regular rate and rhythm. RESPIRATORY: No accessory muscle use. Clear to auscultation. Breath sounds equal bilaterally. GASTROINTESTINAL: Abdomen soft, non-tender, nondistended. MUSCULOSKELETAL: Extremities without clubbing, cyanosis, or edema. No obvious deformities. NEUROLOGICAL: Awake and alert. No obvious cranial nerve deficits. Motor grossly within normal limits. Five out of 5 muscle strength in the arms and legs. Normal speech. PSYCHIATRIC: Appropriate mood and affect; insight and judgment normal. A/P Problem List: (1) Altered mental status ICD Code: R41.82 Status: Acute (2) Polysubstance abuse ICD Code: F19.10 Status: Acute Assessment and Plan Toxic encephalopathy. Improving. Patient counseled regarding poly-substance abuse - Cocaine and amphetamine toxicity - IV fluids - When necessary benzodiazepine - Neuro checks per unit routine - Monitor for withdrawal - Seizure precautions Subdural hematoma???. Patient denies headache, dizziness and focal weakness. Neurologically intact - Repeat CT head without SDH - Status post neurosurgery consultation - No history of trauma - Coags within normal limits Urinary retention. Urinalysis unremarkable. Increase activity and discontinue Johnson catheter. Consider Flomax Leukocytosis. Improved Hypokalemia. Replace. Mild elevated AST and ammonia. Denies liver disease. Obtain ultrasound of the liver Oral thrush. Mouth care. Restart nystatin DVT GI prophylaxis - Teds SCDs - Early aggressive mobilization - No pharmacological DVT prophylaxis due to questionable subdural hematoma - Pepcid Discharge Planning Stable for transfer to floor Problem Qualifiers (1) Altered mental status: Qualified Code: R41.0 - Disorientation Johnie Frias MD November 10, 2016 10:28
[2016-11-10] MEDS: REMOVE OLD PATCH T-DERMAL SCH (10:30)
[2016-11-10] MEDS: NICOTINE 21 MG/24 HR PATCH T-DERMAL SCH (10:30)
[2016-11-10] MEDS ORDERED: NYST1000 SWISH-SPIT (10:31)
--- NOTE | 2016-11-10 10:32 | HHI.DCPOC ---
Discharge Care Plan Diagnosis: (1) Altered mental status (2) Polysubstance abuse Your Health Problems Are: Difficulty with ADL Exercise Tolerance Goals to Promote Your Health * To prevent worsening of your condition and complications * To maintain your health at the optimal level Directions to Meet Your Goals Take your medications as prescribed Follow your dietary instruction Follow activity as directed Keep your appointments as scheduled Take your immunizations and boosters as scheduled If your symptoms worsen call your PCP, if no PCP go to Urgent Care Center or Emergency Room Smoking is Dangerous to Your Health. Avoid second hand smoke Call the 24-hour hour crisis hotline for domestic abuse at Johnie Frias MD November 10, 2016 10:32
--- NOTE | 2016-11-10 10:40 | HHI.NSPN ---
(Wayne Abreu) Note Status Status: Progress Note ([facility]) Interval History Interval History 11/09: This is a 36-year-old male who states that he is uncertain why he is in the hospital. When seen he was extremely drowsy and kept drifting back off to sleep. He did state that he had not been feeling well the past couple weeks. A review of the Hospitalist H&P indicates the patient was brought to the hospital for evaluation of altered mental status. He apparently lives in [place] and drove to [facility] yesterday and was not feeling well. It is noted that around the patient presented to an urgent care facility and was diagnosed with thrush and was being treated with nystatin. He did report taking a significant amount of acetaminophen due the head, mouth and neck pain. The patient also reported involuntary movements which were not further described that had been ongoing for several days prior. He was uncertain if he had any fever and he denied any alcohol or illicit drug use. He had a CT brain done at [place] which demonstrated a questionable subdural haematoma. The patient subsequently became extremely agitated and required restraints. Therefore he was transferred to [facility] for further evaluation and care. 11/10: Patient awake & alert and had no complaints when seen this morning. When asked why he is in the hospital he states that he wasn't able to sleep the past week and had some tics and was brought to the hospital. (Wayne Abreu) Labs, Micro, & Vital Signs Results Allergies Coded Allergies Type Severity Reaction Last Updated Verified Egg White Allergy Severe Anaphylaxis 11/09/16 Yes Nut Tree Allergy Severe Anaphylaxis 11/09/16 Yes Recent Impressions Neck CT 11/09/16 0723 Signed Impressions: Service Date/Time: Wednesday, November 09, 2016 10:02 - CONCLUSION: 1. Unremarkable CT scan of the neck. No masses are identified. Amado Dubois MD Head CT 11/09/16 0000 Signed Impressions: Service Date/Time: Wednesday, November 09, 2016 10:02 - CONCLUSION: Normal examination. No subdural hematoma observed. Ha Pereira Jr., MD Head CT 11/08/16 0000 Signed Impressions: Service Date/Time: Tuesday, November 08, 2016 22:36 - CONCLUSION: Extensive motion artifact. Right-sided subdural hemorrhage cannot be excluded. Otherwise unremarkable CT brain. Dandre Ledesma MD ///// 06:00 18:00 06:00 18:00 06:00 18:00 Intake Total 1000 ml 1159 ml 1382 ml Output Total 300 ml 1000 ml 1550 ml Balance 700 ml 159 ml -168 ml Intake Oral 250 ml IV Total 1000 ml 909 ml 1382 ml Output Urine Total 300 ml 1000 ml 1550 ml Stool Total 0 ml Bladder Scan Volume Amount 857 ml 457 ml # Bowel Movements 0 Laboratory Tests Test 11/08/16 11/08/16 11/08/16 11/09/16 20:40 21:00 21:45 05:34 White Blood Count 11.5 TH/MM3 Red Blood Count 4.59 MIL/MM3 Hemoglobin 14.5 GM/DL Hematocrit 42.2 % Mean Corpuscular Volume 91.8 FL Mean Corpuscular Hemoglobin 31.6 PG Mean Corpuscular Hemoglobin 34.4 % Concent Red Cell Distribution Width 13.5 % Platelet Count 229 TH/MM3 Mean Platelet Volume 8.2 FL Neutrophils (%) (Auto) 64.3 % Lymphocytes (%) (Auto) 24.1 % Monocytes (%) (Auto) 5.3 % Eosinophils (%) (Auto) 5.5 % Basophils (%) (Auto) 0.8 % Neutrophils # (Auto) 7.4 TH/MM3 Lymphocytes # (Auto) 2.8 TH/MM3 Monocytes # (Auto) 0.6 TH/MM3 Eosinophils # (Auto) 0.6 TH/MM3 Basophils # (Auto) 0.1 TH/MM3 CBC Comment DIFF FINAL Differential Comment Prothrombin Time 10.8 SEC Prothromb Time International 1.0 RATIO Ratio Activated Partial 28.2 SEC Thromboplast Time Sodium Level 140 MEQ/L Potassium Level 3.8 MEQ/L Chloride Level 104 MEQ/L Carbon Dioxide Level 28.6 MEQ/L Anion Gap 7 MEQ/L Blood Urea Nitrogen 11 MG/DL Creatinine 0.78 MG/DL Estimat Glomerular Filtration 111 ML/MIN Rate Random Glucose 115 MG/DL Calcium Level 9.0 MG/DL Total Bilirubin 2.3 MG/DL Aspartate Amino Transf 42 U/L (AST/SGOT) Alanine Aminotransferase 49 U/L (ALT/SGPT) Alkaline Phosphatase 96 U/L Total Creatine Kinase 400 U/L Creatine Kinase MB 0.7 NG/ML Creatine Kinase MB % 0.2 % Total Protein 7.7 GM/DL Albumin 4.5 GM/DL Thyroid Stimulating Hormone 1.930 uIU/ML 3rd Gen Ethyl Alcohol Level LESS THAN 3 MG/DL Ammonia 45 MCMOL/L Acetaminophen Level LESS THAN 2.0 MCG/ML Urine Color YELLOW Urine Turbidity CLEAR Urine pH 6.0 Urine Specific [place] 1.018 Urine Protein NEG mg/dL Urine Glucose (UA) NEG mg/dL Urine Ketones NEG mg/dL Urine Occult Blood NEG Urine Nitrite NEG Urine Bilirubin NEG Urine Leukocyte Esterase NEG Urine WBC 0-2 /hpf Urine Squamous Epithelial 0-5 /hpf Cells Urine Mucus OCC /lpf Microscopic Urinalysis Comment CULT NOT INDICATED Urine Opiates Screen NEG Urine Barbiturates Screen NEG Urine Amphetamines Screen POS Urine Benzodiazepines Screen NEG Urine Cocaine Screen POS Urine Cannabinoids Screen NEG Nasal Screen MRSA (PCR) MRSA NOT DETECTED Test 11/09/16 11/10/16 09:40 04:04 Ammonia 36 MCMOL/L Total Creatine Kinase 368 U/L Creatine Kinase MB 0.5 NG/ML Creatine Kinase MB % 0.1 % White Blood Count 9.0 TH/MM3 Red Blood Count 3.89 MIL/MM3 Hemoglobin 12.6 GM/DL Hematocrit 35.6 % Mean Corpuscular Volume 91.5 FL Mean Corpuscular Hemoglobin 32.5 PG Mean Corpuscular Hemoglobin 35.5 % Concent Red Cell Distribution Width 14.0 % Platelet Count 199 TH/MM3 Mean Platelet Volume 7.6 FL Neutrophils (%) (Auto) 60.7 % Lymphocytes (%) (Auto) 27.8 % Monocytes (%) (Auto) 5.5 % Eosinophils (%) (Auto) 5.1 % Basophils (%) (Auto) 0.9 % Neutrophils # (Auto) 5.5 TH/MM3 Lymphocytes # (Auto) 2.5 TH/MM3 Monocytes # (Auto) 0.5 TH/MM3 Eosinophils # (Auto) 0.5 TH/MM3 Basophils # (Auto) 0.1 TH/MM3 CBC Comment DIFF FINAL Differential Comment Sodium Level 141 MEQ/L Potassium Level 3.4 MEQ/L Chloride Level 104 MEQ/L Carbon Dioxide Level 28.6 MEQ/L Anion Gap 8 MEQ/L Blood Urea Nitrogen 12 MG/DL Creatinine 0.53 MG/DL Estimat Glomerular Filtration 174 ML/MIN Rate Random Glucose 90 MG/DL Calcium Level 8.8 MG/DL Phosphorus Level 2.6 MG/DL Magnesium Level 2.3 MG/DL Total Bilirubin 2.9 MG/DL Aspartate Amino Transf 47 U/L (AST/SGOT) Alanine Aminotransferase 44 U/L (ALT/SGPT) Alkaline Phosphatase 87 U/L Total Protein 7.1 GM/DL Albumin 4.1 GM/DL Constitutional Vital Signs Date Time Temp Pulse Resp B/P Pulse Ox O2 Delivery O2 Flow Rate FiO2 11/10/16 10:17 96 Nasal Cannula 2.00 11/10/16 08:00 60 11/10/16 07:00 96 Nasal Cannula 2.00 11/10/16 06:00 62 11/10/16 04:00 98.5 65 17 139/63 92 11/10/16 04:00 65 11/10/16 02:00 71 11/10/16 00:00 97.5 71 18 139/63 92 11/10/16 00:00 71 11/09/16 22:00 92 Room Air 11/09/16 22:00 73 11/09/16 20:00 77 11/09/16 20:00 98.8 74 19 139/72 95 11/09/16 19:00 96 Nasal Cannula 2.00 11/09/16 18:00 77 11/09/16 16:00 99.0 68 20 144/71 92 11/09/16 16:00 69 11/09/16 14:09 18 11/09/16 14:00 73 11/09/16 13:46 Room Air 11/09/16 13:25 98 Nasal Cannula 3.00 11/09/16 12:00 84 11/09/16 12:00 98.6 83 20 145/68 94 11/10/16 07:00 Intake Total 2541 ml Output Total 2550 ml Balance -9 ml (Wayne Abreu) Review of Systems/Exam ROS Constitutional: Patient denies any fever or chills. HEENT: Patient denies any double vision, blurry vision, nasal drainage, or other ENT problems. Respiratory: Patient states he has a productive cough. He denies any short of breath. Cardiovascular: Patient denies any chest pain, palpitations or irregular heart beat. Gastrointestinal: Patient denies any abdominal pain, nausea, vomiting or bowel incontinence. Genitourinary: Patient denies any bladder incontinence. Musculoskeletal: Patient denies any arm or leg pain or weakness. Neurologic: Patient denies any headache, dizziness, numbness or tingling. Exam General: Awake & alert, readily interacts, affect essentially normal, NAD. HEENT: Normocephalic, atraumatic. PERRLA, EOM intact. MMM & pink. Respiratory: CTAB w/o W/R/R, equal excursion, non-laboured, on RA. Cardiovascular: S1S2 w/RRR w/o M/G/R, radial & pedal pulses 2+ bilaterally, cap refill < 2 sec, no pedal edema. Monitor is sinus rhythm w/o any ectopy noted. Gastrointestinal: Abdomen soft, nontender, positive bowel sounds. Musculoskeletal: DA SILVA w/o difficulty, no TTP, no deformity, discolouration or clubbing noted. Neurologic: AA&O x3 to person, place and time (did think he was at [place] in the hospital) CN II-XII appear grossly intact Follows simple commands Sensations grossly intact to light touch to all extremities Motor strength 5/5 to all major flexion & extension muscle groups (Wayne Abreu) Medications Current Medications Current Medications Medications (Trade) Dose Ordered Sig/Ko Route Start Time Stop Time Status Last Admin Sodium Chloride 2 ml 2 ml UNSCH PRN IVF 11/08/16 20:45 11/09/16 05:58 (NS 1000 ml Inj) 1,000 ml @ 75 mls/hr [id number] IV 11/09/16 05:50 11/09/16 21:18 (NS Flush) 2 ml UNSCH PRN .XX 11/09/16 06:00 (NS Flush) 2 ml BID .XX 11/09/16 09:00 11/10/16 09:05 (Tylenol) 650 mg Q6H PRN PO 11/09/16 06:00 11/09/16 13:09 (Morphine Inj) 2 mg Q2H PRN IV 11/09/16 06:00 (Pepcid Inj) 20 mg Q12HR IV PUSH 11/09/16 09:00 11/10/16 09:04 (Versed Inj) 2 mg Q1H PRN IV 11/09/16 06:00 (Zofran Inj) 4 mg Q6H PRN IV 11/09/16 06:00 (Reglan Inj) 10 mg Q6H PRN IV 11/09/16 06:00 (Colace) 100 mg BID PO 11/09/16 09:00 11/10/16 09:04 Miscellaneous Information 1 Q361D XX 11/09/16 06:00 11/09/16 06:00 (Chlorhexidine 2% Cloth) 3 pack Taper DAILY@04 TOP 11/10/16 04:00 11/06/17 03:59 Chlorhexidine Gluconate 3 pack 3 pack UNSCH PRN TOP 11/09/16 06:00 (Precedex Inj/NS Inj) 52 ml @ 0 mls/hr TITRATE IV 11/09/16 06:00 (Romazicon Inj) 0.2 mg Q1M PRN IV PUSH 11/09/16 06:15 (Ativan) 1 mg Q4H PRN PO 11/09/16 06:15 (Ativan Inj) 1 mg Q4H PRN IV PUSH 11/09/16 06:15 (Ativan) 2 mg Q2H PRN PO 11/09/16 06:15 (Ativan Inj) 2 mg Q2H PRN IV PUSH 11/09/16 06:15 (Ativan Inj) 2 mg Q1H PRN IV PUSH 11/09/16 06:15 (Ativan Inj) 2 mg Q15M PRN IV PUSH 11/09/16 06:15 (Mycostatin Liq) 5 ml QID SWISH-SPIT 11/10/16 13:00 11/22/16 12:59 (Habitrol 21 Mg Patch.24 Hr) 1 patch DAILY T-DERMAL 11/10/16 10:30 Miscellaneous Information 1 DAILY T-DERMAL 11/10/16 10:30 (Wayne Abreu) Medical Decision Making MDM Remarks Impression: Altered mental status, continues to improve, etiology unknown (Wayne Abreu) Plan Plan Remarks No indication for NSGY, will therefore sign off at this time. If we may be of further assistance please consult the service as needed. Thank you for allowing us to participate in your patient's care. Recommend Neurology consult for reported tics (Wayne Abreu) Attending Statement I have personally seen and examined the patient on the date of this note. Pertinent documentation and study results have been reviewed by the undersigned. I have personally developed the treatment plan and performed medical decision making. Agree with findings, exam, and treatment plan as noted above. Patient's vital status has markedly improved. No further extremity spasms. Positive history of cocaine use via nasal inhalation with patient's complaint of involuntary spasms, confusion/agitation and oropharyngeal pain and swelling all improving. Discussed with the patient today in the room. No further neurosurgical intervention planned. Stable for discharge from neurosurgery standpoint. We will sign off. (Taj Bernardo MD) Wayne Abreu November 10, 2016 10:40 Taj Bernardo MD November 10, 2016 20:28
[2016-11-10] MEDS: SODIUM CHLOR 0.9% 1000 ML INJ 1,000 ML IV SCH (11:18)
--- NOTE | 2016-11-10 12:05 | MB ---
cc: MARY DAVISON M.D. DATE OF CONSULTATION 11/10/16 REASON FOR CONSULTATION He is a 36-year-old seen in neurological consultation. He was initially treated at [facility] and subsequently transferred here as there was some question of a right-sided subdural hematoma which turned out to be an artifact from a limited ___ scan. He has been discharged by the neurosurgical staff. The patient went to the hospital on the and he is now ready to be transferred out of the unit. He is noted to have some twitching and jerking and thick movements. Apparently this is all new. He admits that he mixed drugs. The father is at bedside and was aware that he had problems with drinking but not aware of any drug related issues. No history of seizures, stroke or TIA. He has a history of some GI problems and hypertension. NEUROLOGIC EXAM Examination shows the patient to be somewhat sleepy but he is awake and he is aware of the location, he seems well oriented to the events and admits using the mixture of drugs. He follows commands and he is in no distress. He was pleasant, cooperative. Pupils equal and reactive and able to count fingers bilaterally. No facial weakness. He has good strength in all four limbs on the bedside exam. Reflexes diminished but present throughout and plantar responses flexor. LABORATORY DATA The current labs seen. Today WBC 9.0, hemoglobin 12.6, platelets 199. Chemistry fairly benign with sodium 141, potassium 3.4, BUN and creatinine normal. Glucose 90, total bilirubin is high at 2.9 and AST 47. Toxicology on 11/08 was positive for amphetamine and cocaine on the urine. ASSESSMENT Resolving encephalopathy secondary to polysubstance abuse. He is twitching and pick disorder, probably representing some mild myoclonus. He is just about resolved. I spoke to the nursing staff and I saw none of these but the nurses said that today this was much, much improved compared to yesterday. The CT brain in followup have disclosed no abnormality, no subdural hematoma and he also had unremarkable CT scan of the neck. At this point it can be transferred out of the unit and if there is any additional suggestions of encephalopathy or myoclonus/twitching, I will be happy to reevaluate him. I discussed all of these with the patient and his father at bedside and strongly urged him to abstain from any drug use. Thank you for asking us to assist in his care. MD ANNALISE Palafox/CED /11:29 AM /11:45 AM
[2016-11-10] MEDS: NYSTATIN SUSP 500,000 U/5 ML CUP SWISH-SPIT SCH ×3 (13:50→21:45)
--- NOTE | 2016-11-10 14:10 | RADRPT ---
EXAM DATE/TIME: 11/10/2016 10:28 [facility] COMPARISON: No previous studies available for comparison. INDICATIONS : Elevated LFT's MEDICAL HISTORY : Asthma. Sleep Apnea. Inflammatory bowel disease. Anxiety. Alcohol use. Substance use. SURGICAL HISTORY : Right leg/ankle surgery. ENCOUNTER: Initial ACUITY: 2 days PAIN SCORE: 2/10 LOCATION: Abdomen. MEASUREMENTS: LIVER: 20 cm length COMMON DUCT: 3 mm RIGHT KIDNEY: 13.2 x 6.7 x 6.2 cm SPLEEN: 18.5 cm length FINDINGS: LIVER: The liver is diffusely echogenic. An 8mm anechoic focus is seen within the anterior aspect of segment 3 in a subcapsular location. There is some posterior acoustical enhancement. No blood flow observed. Hepatopedal flow within the portal vein. No mass or ductal dilatation. COMMON DUCT: No intraluminal mass or stone visualized. GALLBLADDER: Multiple calcified gallstones are seen layering within an otherwise normal appearing gallbladder. PANCREAS: The visualized portions are within normal limits. RIGHT KIDNEY: No hydronephrosis or mass. A 12 mm anechoic focus is seen involving the midpole. There is posterior a coustical enhancement. There is an 11 mm echogenic focus within the mid pole with shadowing. No hydro nephrosis. SPLEEN: No focal lesion. CONCLUSION: 1. Hepatic steatosis. 2. Small simple cysts involving the left lobe of the liver and right kidney. 3. 11 mm nonobstructing right renal calculus. 4. Tiny amount of free fluid adjacent to the left lobe of the liver. 5. Cholelithiasis. Ha Pereira Jr., MD on November 10, 2016 at 14:01 Board Certified Radiologist. This report was verified electronically.
[2016-11-10] MEDS: ACETAMINOPHEN 325 MG TAB PO PRN (19:27)
[2016-11-10 21:09] LABS: MEAN CORPUSCULAR HGB CONC 36.1 % (32.0-36.0)
[2016-11-11] VITALS: BP 118/55; PULSE 59; RESP 16; TEMP 98.2; O2SAT 93
[2016-11-11 02:00] VITALS: PULSE 69
[2016-11-11 04:00] VITALS: BP 127/60; PULSE 63; RESP 16; TEMP 97.8; O2SAT 95
[2016-11-11] MEDS: CHLORHEXIDINE GLUCONATE 2 % 1 PACK (2 CLOTHS) TOP SCH (04:00)
[2016-11-11 05:05] LABS: AUTOMATED NEUTROPHIL # 4.2 TH/MM3 (1.8-7.7); BASOPHIL # 0.1 TH/MM3 (0-0.2); EOSINOPHIL # 0.5 TH/MM3 (0-0.4); HEMATOCRIT 36.9 % (39.0-51.0); LYMPH % 30.9 % (9.0-44.0); LYMPHOCYTE # 2.3 TH/MM3 (1.0-4.8); MEAN CELL VOLUME 90.2 FL (80.0-100.0); MEAN CORPUSCULAR HEMOGLOBIN 32.5 PG (27.0-34.0); MONO % 6.5 % (0.0-8.0); NEUT % 55.6 % (16.0-70.0); PLATELET COUNT 235 TH/MM3 (150-450); RED BLOOD COUNT 4.09 MIL/MM3 (4.50-5.90); RED CELL DISTRIBUTION WIDTH 13.8 % (11.6-17.2); WHITE BLOOD COUNT 7.5 TH/MM3 (4.0-11.0)
[2016-11-11 05:08] LABS: HEMO FLAGS AUTO DIFF
[2016-11-11 05:34] LABS: ALKALINE PHOSPHATASE 106 U/L (45-117); ALT (GPT) 49 U/L (12-78); ANION GAP 9 MEQ/L (5-15); AST (GOT) 45 U/L (15-37); BLOOD UREA NITROGEN 15 MG/DL (7-18); CHLORIDE 104 MEQ/L (98-107); GLOMERULAR FILTRATION RATE 131 ML/MIN (>89); MAGNESIUM 2.4 MG/DL (1.5-2.5); POTASSIUM 3.7 MEQ/L (3.5-5.1); SODIUM (NA) 143 MEQ/L (136-145); TOTAL BILIRUBIN ADULT 2.2 MG/DL (0.2-1.0)
[2016-11-11 06:00] VITALS: PULSE 69
[2016-11-11 06:56] LABS: PLATELET ESTIMATE SMEAR NORMAL (NORMAL); PLATELET MORPHOLOGY NORMAL (NORMAL); SCAN/DIFF AUTO DIFF CONFIRMED
[2016-11-11 08:00] VITALS: BP 121/58; PULSE 59; PULSE 61; RESP 18; TEMP 98; O2SAT 94
[2016-11-11] MEDS: DOCUSATE SODIUM 100 MG CAP PO SCH (08:22)
[2016-11-11] MEDS: NYSTATIN SUSP 500,000 U/5 ML CUP SWISH-SPIT SCH (08:22)
[2016-11-11] MEDS: SODIUM CHLORIDE 0.9% FLUSH 10 ML FLUSH SCH (08:23)
[2016-11-11] MEDS: REMOVE OLD PATCH T-DERMAL SCH (08:51)
[2016-11-11] MEDS: NICOTINE 21 MG/24 HR PATCH T-DERMAL SCH (09:00)
[2016-11-11 10:00] VITALS: PULSE 48
--- NOTE | 2016-11-11 10:22 | HHI.PR ---
Subjective Remarks Follow-up encephalopathy. He feels much better for the aware that his confusion was related to drug use. States he is going to seek help outpatient. Seen with father. Discussed with RN Objective Vitals Vital Signs Date Time Temp Pulse Resp B/P Pulse Ox O2 Delivery O2 Flow Rate FiO2 11/11/16 10:00 48 11/11/16 08:00 59 11/11/16 08:00 98.0 61 18 121/58 94 11/11/16 07:00 Room Air 11/11/16 06:00 69 11/11/16 04:00 97.8 63 16 127/60 95 11/11/16 04:00 63 11/11/16 02:00 69 11/11/16 00:00 98.2 59 16 118/55 93 11/11/16 00:00 59 11/10/16 22:00 71 11/10/16 20:00 98.9 67 17 129/58 93 11/10/16 20:00 67 11/10/16 19:00 93 Room Air 11/10/16 18:00 66 11/10/16 16:00 70 11/10/16 14:00 72 11/10/16 12:00 66 11/10/16 12:00 98.9 66 14 151/71 93 I/O 11/10/16 11/10/16 11/10/16 11/11/16 11/11/16 11/11/16 07:00 15:00 23:00 07:00 15:00 23:00 Intake Total 586 ml 1200 ml 300 ml 300 ml Output Total 550 ml 1300 ml 1 ml 0 ml Balance 36 ml -100 ml 299 ml 300 ml Intake Oral 700 ml 300 ml 300 ml IV Total 586 ml 500 ml Output Urine Total 550 ml 1300 ml 1 ml 0 ml Stool Total 0 ml # Bowel Movements 0 0 0 Result Diagram: 11/11/16 0426 11/11/16 0426 Imaging Last Impressions Liver Ultrasound 11/10/16 0000 Signed Impressions: Service Date/Time: Thursday, November 10, 2016 10:28 - CONCLUSION: 1. Hepatic steatosis. 2. Small simple cysts involving the left lobe of the liver and right kidney. 3. 11 mm nonobstructing right renal calculus. 4. Tiny amount of free fluid adjacent to the left lobe of the liver. 5. Cholelithiasis. Ha Pereira Jr., MD Neck CT 11/09/16 0723 Signed Impressions: Service Date/Time: Wednesday, November 09, 2016 10:02 - CONCLUSION: 1. Unremarkable CT scan of the neck. No masses are identified. Amado Dubois MD Head CT 11/09/16 0000 Signed Impressions: Service Date/Time: Wednesday, November 09, 2016 10:02 - CONCLUSION: Normal examination. No subdural hematoma observed. Ha Pereira Jr., MD Objective Remarks GENERAL: Obese well-developed in no distress SKIN: Warm and dry. HEAD: Atraumatic. Normocephalic. EYES: Pupils equal and round. No scleral icterus. No injection or drainage. ENT: No nasal bleeding or discharge. Tongue looks improved without thick coating of grayish green material NECK: Trachea midline. No JVD. CARDIOVASCULAR: Regular rate and rhythm. RESPIRATORY: No accessory muscle use. Clear to auscultation. Breath sounds equal bilaterally. GASTROINTESTINAL: Abdomen soft, non-tender, nondistended. MUSCULOSKELETAL: Extremities without clubbing, cyanosis, or edema. No obvious deformities. NEUROLOGICAL: Awake and alert. No obvious cranial nerve deficits. Motor grossly within normal limits. Five out of 5 muscle strength in the arms and legs. Normal speech. PSYCHIATRIC: Appropriate mood and affect; insight and judgment normal. Procedures None A/P Problem List: (1) Altered mental status ICD Code: R41.82 Status: Acute (2) Polysubstance abuse ICD Code: F19.10 Status: Acute Assessment and Plan Toxic encephalopathy. Resolved. Patient counseled regarding poly-substance abuse - Cocaine and amphetamine toxicity - Discontinue IV fluids - When necessary benzodiazepine - Neuro checks per unit routine - Monitor for withdrawal - Seizure precautions -Cleared for discharge by neurology Subdural hematoma???. Patient denies headache, dizziness and focal weakness. Neurologically intact - Repeat CT head without SDH - Status post neurosurgery consultation - No history of trauma - Coags within normal limits Urinary retention. Urinalysis unremarkable. Resolved Leukocytosis. Improved Hypokalemia. Replaced. Mild elevated AST and ammonia. History of fatty liver. Abdominal sonogram shows Hepatic steatosis. 2. Small simple cysts involving the left lobe of the liver and right kidney. 3. 11 mm nonobstructing right renal calculus. 4. Tiny amount of free fluid adjacent to the left lobe of the liver. 5. Cholelithiasis. Patient to follow-up outpatient Oral thrush. Mouth care. Continue nystatin DVT GI prophylaxis - Teds SCDs - Early aggressive mobilization - No pharmacological DVT prophylaxis due to questionable subdural hematoma - Pepcid Discharge Planning Stable for discharge Problem Qualifiers (1) Altered mental status: Qualified Code: R41.0 - Disorientation Johnie Frias MD November 11, 2016 10:22
--- NOTE | 2016-11-11 10:23 | HHI.DS ---
Discharge Summary Admission Date November 08, 2016 at 23:16 Discharge Date: November 11, 2016 Admitting Diagnosis altered mental status, polysubstance abuse, possible ICH (1) Altered mental status ICD Code: R41.82 Diagnosis: Principal (2) Polysubstance abuse ICD Code: F19.10 Diagnosis: Principal Procedures None Brief History - From Admission 36-year-old male with history of asthma brought in by his mother for evaluation of altered mental status. The patient lives in [place] and drove into town today. He wasn't feeling well yesterday. About a week ago Tuesday he went to an urgent care facility and was diagnosed with thrush for which she has been taking nystatin. The patient also reports taking a significant amount of Tylenol since then because he has been having head, mouth, and neck pain. Patient was also complaining of involuntary movements which have been going on for last several days. He denies alcohol abuse or illicit drug use. He is not sure if he has had fever. CT of the head that the [place] revealed questionable subdural hematoma. Patient became extremely agitated requiring restraints. For the patient's safety he was transferred to here for level of care and follow-up CT of the head. CBC/BMP: 11/11/16 0426 11/11/16 0426 Significant Findings Laboratory Tests Test 11/08/16 11/08/16 11/08/16 11/09/16 20:40 21:00 21:45 09:40 White Blood Count 11.5 TH/MM3 (4.0-11.0) Eosinophils (%) (Auto) 5.5 % (0.0-4.0) Eosinophils # (Auto) 0.6 TH/MM3 (0-0.4) Random Glucose 115 MG/DL (74-106) Total Bilirubin 2.3 MG/DL (0.2-1.0) Aspartate Amino Transf 42 U/L (15-37) (AST/SGOT) Total Creatine Kinase 400 U/L 368 U/L (39-308) (39-308) Ammonia 45 MCMOL/L 36 MCMOL/L (11-32) (11-32) Acetaminophen Level LESS THAN 2.0 MCG/ML (10.0-30.0) Urine Amphetamines Screen POS (NEG) Urine Cocaine Screen POS (NEG) Test 11/10/16 11/11/16 04:04 04:26 Red Blood Count 3.89 MIL/MM3 4.09 MIL/MM3 (4.50-5.90) (4.50-5.90) Hemoglobin 12.6 GM/DL (13.0-17.0) Hematocrit 35.6 % 36.9 % (39.0-51.0) (39.0-51.0) Eosinophils (%) (Auto) 5.1 % (0.0-4.0) 6.0 % (0.0-4.0) Eosinophils # (Auto) 0.5 TH/MM3 0.5 TH/MM3 (0-0.4) (0-0.4) Potassium Level 3.4 MEQ/L (3.5-5.1) Creatinine 0.53 MG/DL (0.60-1.30) Total Bilirubin 2.9 MG/DL 2.2 MG/DL (0.2-1.0) (0.2-1.0) Aspartate Amino Transf 47 U/L (15-37) 45 U/L (15-37) (AST/SGOT) Mean Corpuscular Hemoglobin 36.1 % Concent (32.0-36.0) Random Glucose 115 MG/DL (74-106) Imaging Last Impressions Liver Ultrasound 11/10/16 0000 Signed Impressions: Service Date/Time: Thursday, November 10, 2016 10:28 - CONCLUSION: 1. Hepatic steatosis. 2. Small simple cysts involving the left lobe of the liver and right kidney. 3. 11 mm nonobstructing right renal calculus. 4. Tiny amount of free fluid adjacent to the left lobe of the liver. 5. Cholelithiasis. Ha Pereira Jr., MD Neck CT 11/09/16 0723 Signed Impressions: Service Date/Time: Wednesday, November 09, 2016 10:02 - CONCLUSION: 1. Unremarkable CT scan of the neck. No masses are identified. Amado Dubois MD Head CT 11/09/16 0000 Signed Impressions: Service Date/Time: Wednesday, November 09, 2016 10:02 - CONCLUSION: Normal examination. No subdural hematoma observed. Ha Pereira Jr., MD PE at Discharge GENERAL: Obese well-developed in no distress SKIN: Warm and dry. HEAD: Atraumatic. Normocephalic. EYES: Pupils equal and round. No scleral icterus. No injection or drainage. ENT: No nasal bleeding or discharge. Tongue looks improved without thick coating of grayish green material NECK: Trachea midline. No JVD. CARDIOVASCULAR: Regular rate and rhythm. RESPIRATORY: No accessory muscle use. Clear to auscultation. Breath sounds equal bilaterally. GASTROINTESTINAL: Abdomen soft, non-tender, nondistended. MUSCULOSKELETAL: Extremities without clubbing, cyanosis, or edema. No obvious deformities. NEUROLOGICAL: Awake and alert. No obvious cranial nerve deficits. Motor grossly within normal limits. Five out of 5 muscle strength in the arms and legs. Normal speech. PSYCHIATRIC: Appropriate mood and affect; insight and judgment normal. Hospital Course Toxic encephalopathy. Resolved. Patient counseled regarding poly-substance abuse - Cocaine and amphetamine toxicity - Discontinue IV fluids - When necessary benzodiazepine - Neuro checks per unit routine - Monitor for withdrawal - Seizure precautions -Cleared for discharge by neurology Subdural hematoma???. Patient denies headache, dizziness and focal weakness. Neurologically intact - Repeat CT head without SDH - Status post neurosurgery consultation - No history of trauma - Coags within normal limits Urinary retention. Urinalysis unremarkable. Resolved Leukocytosis. Improved Hypokalemia. Replaced. Mild elevated AST and ammonia. History of fatty liver. Abdominal sonogram shows Hepatic steatosis. 2. Small simple cysts involving the left lobe of the liver and right kidney. 3. 11 mm nonobstructing right renal calculus. 4. Tiny amount of free fluid adjacent to the left lobe of the liver. 5. Cholelithiasis. Patient to follow-up outpatient Oral thrush. Mouth care. Continue nystatin DVT GI prophylaxis - Teds SCDs - Early aggressive mobilization - No pharmacological DVT prophylaxis due to questionable subdural hematoma - Pepcid Pt Condition on Discharge: Stable Discharge Disposition: Discharge Home Discharge Time: > 30 minutes Discharge Instructions DIET: Follow Instructions for: As Tolerated, No Restrictions Speech Therapy-Diet Recommends: Regular Activities you can perform: Regular-No Restrictions Activities to Avoid: Driving New Medications: Nystatin Liq (Nystatin Liq) 100,000 unit/ml Susp 5 ML SWISH-SPIT QID thrush #240 ML Continued Medications: Acetaminophen (Tylenol) 325 Mg Tab 650 MG PO Q6H PRN PAIN, SEVERE 7-10 ON SCALE Ref 0 TAB Lorazepam (Ativan) 0.5 Mg Tab Unknown Dose PO DAILY PRN ANXIETY AND/OR AGITATION Ref 0 TAB Paroxetine (Paxil) Unknown Strength Tab Unknown Dose PO DAILY #30 Ref 0 TAB Johnie Frias MD November 11, 2016 10:23
== END 2016-11-11 10:43 | disposition home or self-care (01) | DRG 947 ==
LOC: PHED 19:58 → PHEDA 23:16 → N03B 11-09 05:23
PROVIDERS: ADMIT Internal Medicine; ATTEND Internal Medicine
DX: R41.82 Altered mental status, unspecified (principal); G92 Toxic encephalopathy; K76.0 Fatty (change of) liver, not elsewhere classified; B37.0 Candidal stomatitis; N20.0 Calculus of kidney; G25.3 Myoclonus; N28.1 Cyst of kidney, acquired; E87.6 Hypokalemia; I10 Essential (primary) hypertension; J45.909 Unspecified asthma, uncomplicated; F19.10 Other psychoactive substance abuse, uncomplicated; K80.20 Calculus of gallbladder without cholecystitis without obstruction; R33.9 Retention of urine, unspecified; D72.829 Elevated white blood cell count, unspecified; F10.10 Alcohol abuse, uncomplicated; F12.90 Cannabis use, unspecified, uncomplicated; T50.904A Poisoning by unspecified drugs, medicaments and biological substances, undetermined, initial encounter; Z72.0 Tobacco use; Z78.1 Physical restraint status
CPT/HCPCS: 70450; 70491; 76705; 80053; 80307; 81001; 82140; 82550; 82552; 83735; 84100; 84443; 85025; 85610; 85730; 87086; 87641; 93005; 96361; 96374; 96376; J1644; J2060; J7030; P9612; Q9967